=== PATIENT | female | born 1955 | race Caucasian/White ===

== ENCOUNTER 2016-07-03 06:38 | Day surgery (SDC) | payer BC, OTHER ==
--- NOTE | ~2016-07-03 | OP ---
Record Of Operation [facility] [address] [place]. [address] NAME: JASMINE MILLER : 57 STATUS : [facility]#: [id number] AGE: 60 ADM/REG DATE : 07/03/16 MR#: [id number] REPORT SERV DATE: 07/07/16 DICTATED BY: NOMI TREJO DATE: 07/06/16 REPORT STATUS : Draft TRANSCRIBED BY: MODL DATE: 07/06/16 DATE OF PROCEDURE: 07/03/2016 PREOPERATIVE DIAGNOSIS: Bilateral lower extremity ischemic rest pain. POSTOPERATIVE DIAGNOSIS: Bilateral lower extremity ischemic rest pain. PROCEDURE: 1. Aortogram with bilateral lower extremity runoff. 2. Percutaneous angioplasty of the left common iliac artery, external iliac artery, common femoral artery, and deep femoral arteries with a 5 mm balloon. 3. Percutaneous angioplasty of the left external iliac artery with a 6 mm IN.PACT Drug- Coated Balloon. 4. Percutaneous angioplasty of the left common iliac artery using a 7 mm C2C [employer] IN.PACT Drug-Coated balloon. 5. Percutaneous angioplasty of the right common iliac artery using a 7 mm balloon. 6. Percutaneous angioplasty of the right external iliac and common femoral arteries using a 6 mm balloon. SURGEON: Nomi Trejo M.D. ENTERPRISE SOFTWARE DEVELOPER: Marycruz Martinez MD. ANESTHESIA: General. INDICATIONS: The patient is a lady who has previously had a right femoral to below-knee popliteal bypass. She also has had multiple attempts of left lower extremity revascularization. Eventually, she required a left [id number] amputation. 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 Thus, she was consented for open exposure of her bypass to treat proximal disease on the right side that is causing ischemic rest pain as well as putting her bypass at risk. DESCRIPTION OF PROCEDURE: After informed consent was obtained, the patient was taken to the operating room and placed in the supine position on the operating table. She was intubated and general anesthesia was administered. The patient's right lower extremity was prepped and draped in the usual sterile fashion. I began with a longitudinal skin incision along with distal thigh. Cautery was used to deepen the incision. I dissected out the bypass, which incidentally was performed with the vein. The vein was located within the sartorius muscle. I dissected it out. I systemically heparinized. I punctured the graft in a retrograde fashion. I obtained an angiogram with the catheter in the aorta. This demonstrated no hemodynamically significant aortic disease with patent renal arteries. The left external iliac and common iliac arteries were actually patent, but had a greater than 90% stenosis. The left common femoral artery and deep femoral arteries also had stenoses with them. I placed a 7-Mohawk sheath and then angioplastied the left common iliac, external iliac, common femoral, and deep femoral arteries with a 5 mm balloon. While there was improvement, the balloon was clearly undersized. I used a 6 mm [employer] IN.PACT Drug- Record Of Operation [address] [address] NAME: JASMINE MILLER : 57 STATUS : [facility] PAT#: [id number] AGE: 60 ADM/REG DATE : 07/03/16 MR#: [id number] REPORT SERV DATE: 07/07/16 DICTATED BY: NOMI TREJO DATE: 07/06/16 REPORT STATUS : Draft TRANSCRIBED BY: EMEKA DATE: 07/06/16 Coated balloon to angioplasty left external iliac artery. I angioplastied the left common iliac artery with a 7 mm drug-coated balloon. Imaging obtained afterwards showed improvement in the stenosis. There were dissections within the left common iliac and external iliac arteries, but this did not appear to be hemodynamically significant. I angioplastied the right common iliac artery with a 7 mm balloon. I angioplastied the right external iliac artery and common femoral arteries using a 6 mm balloon. Imaging obtained afterwards showed a great result. There was no hemodynamically significant residual stenosis down the right lower extremity. I turned my sheath around and obtained an angiogram down the distal bypass in through the tibial vessels. There was no hemodynamically significant stenosis noted. Thus, I pulled out my sheath. I closed my graftotomy. I washed out the wound and closed in layers. The patient tolerated the procedure well without any intraprocedural complications noted. CHAINSTITCH ELASTIC ATTACHER/EMEKA Nomi Trejo M.D. / [id number] CC: Bijal Trevizo M.D.
[~2016-07-03 06:38] MED LIST: ASAB PO; ASABAYER PO; ASCRIPTIN PO; BACLOFEN20 MG PO; BIST PO; BUSPAR15 M1 PO; C5 PO; CLARIT10 PO; COMP10B PO; COUMADIN10 MG PO; COUMADIN6 MG PO; COUMADIN7.5 MG PO; DUONEB INH; ENDOCET1 TA2 PO; ENDOCET1 TA3 PO; EXALGO12 MG PO; EXALGO8 MG PO; FLONASE NAS; JANTOVEN5 MG PO; JANTOVEN7.5 MG PO; KLONO5 PO; LIDOCAINE; LIDODERM T; LIPITOR20 PO; LIPITOR40 PO; LOVENOX40 SC; LOVENOX60 SC; LOVENOX80 SC; METHOC750B PO; MYLICON 80 MG T80 MG PO; NEUR100 PO; NEUR300 PO; NEUR600 PO; NEUR800 PO; NICODERM C14 MG/24 H TOP; NORV5 PO; OPANA ER15 MG PO; OXYCOD PO; OXYCON10 PO; PCET PO; PERCOCET1 TA4 PO; PLAVIX PO; PRIN10 PO; PRIN20 PO; PROZAC PO; SPIRIVA INH; VOLTAREN1 % TOP; WELLXL150 PO; WELLXL300 PO; X25 PO; ZESTORETIC PO; ZYRTEC ALLGY10 MG PO; [UNRECOGNIZED DRUG - REMARK]
[2016-07-03 07:16] LABS: HEMOGLOBIN 11.8 g/dL (12.0-16.0)
[2016-07-03 07:18] LABS: HEMATOCRIT 35.7 % (36.0-48.0)
[2016-07-03 07:23] LABS: BUN (BLOOD UREA NITROGEN) 10 MG/DL (6-23); CALCIUM, SERUM 9.1 MG/DL (8.5-10.4); CHLORIDE, SERUM 103 MMOL/L (96-112); GFR AFRICAN AMERICAN 110 ML/MIN (>=60); GFR NON AFRICAN AMERICAN 95 ML/MIN (>=60); GLUCOSE, SERUM 125 MG/DL (60-99); POTASSIUM, SERUM 3.8 MMOL/L (3.5-5.3); SODIUM, SERUM 142 MMOL/L (135-148)
[2016-07-03 07:24] LABS: CO2 (CARBON DIOXIDE) 33 MMOL/L (24-34)
== END 2016-07-03 14:50 | disposition home or self-care (01) ==
LOC: SDC 06:38 → SSU1 12:52
PROVIDERS: Surgery
PROC: 02733ZZ Dilation of Coronary Artery, Four or More Arteries, Percutaneous Approach (ICD-10-PCS; principal; 2016-07-03 07:45)
PROC: 047H3ZZ Dilation of Right External Iliac Artery, Percutaneous Approach (ICD-10-PCS; 2016-07-03 07:45)
PROC: 047C3ZZ Dilation of Right Common Iliac Artery, Percutaneous Approach (ICD-10-PCS; 2016-07-03 07:45)
DX: I73.9 Peripheral vascular disease, unspecified (principal); F17.210 Nicotine dependence, cigarettes, uncomplicated; J44.9 Chronic obstructive pulmonary disease, unspecified; G89.29 Other chronic pain; Z88.5 Allergy status to narcotic agent; Z79.82 Long term (current) use of aspirin; Z79.1 Long term (current) use of non-steroidal anti-inflammatories (NSAID); Z79.51 Long term (current) use of inhaled steroids; Z79.899 Other long term (current) drug therapy; Z86.718 Personal history of other venous thrombosis and embolism
CPT/HCPCS: 36200; 37220; 37222; 37224; 75625; 75710; 80048; 85014; 85018; 93005; A9270-GY; C1725; C1769; C1894; C2623; J0690; J2250; J2270; J3010; J3360; Q9966